=== PATIENT | male | born 1965 | race Hispanic/Latino ===

== ENCOUNTER 2017-08-27 16:33 | Emergency (ER) | payer OTHER ==
[~2017-08-27] VITALS: Ht 162.6 cm; Wt 81.6 kg
[2017-08-27] MEDS ORDERED: DIPHTH/TETANUS/ACEL. PERTUSSIS 0.5 ML SYR IM ONE (19:00)
[2017-08-27] MEDS ORDERED: CLINDAMYCIN 300MG 50 ML IV SCH (21:15)
[2017-08-27] MEDS ORDERED: IBUPROFEN 400 MG TAB PO ONE (21:30)
== END 2017-08-27 22:40 | disposition home or self-care (01) ==
LOC: FSED 16:33
DX: S01.112A Laceration without foreign body of left eyelid and periocular area, initial encounter (principal); W45.8XXA Other foreign body or object entering through skin, initial encounter; Y93.89 Activity, other specified; Y99.0 Civilian activity done for income or pay
CPT/HCPCS: 70481; 80048; 85025; 99284

== ENCOUNTER 2017-08-30 12:37 | Emergency (ER) | payer OTHER ==
[~2017-08-30] VITALS: Ht 152.4 cm; Wt 81.6 kg
--- OUTSIDE RECORDS SUMMARY | 2017-08-30 12:40 | XMS REPORT | Continuity of Care Document ---
Author Author [facility] Organization [facility] Address [address] [facility] [place] [address] Phone Unavailable Care Team Providers Care Shoe Clerk Name Role Phone NO, PCP PCP Unavailable Advance Directives Directive Response Recorded Date/Time Does the patient have an advance directive? No 08/27/17 5:42pm If yes, is advance directive on file with [facility]? No 08/27/17 5:42pm If not on file with [facility] will patient provide a copy? No 08/27/17 5:42pm Do you have a Directive to Physician? No 08/27/17 5:42pm Do you have a Medical Power of Conditioning Room Worker? No 08/27/17 5:42pm Do you have an out of hospital Do Not Resuscitate Order? No 08/27/17 5:42pm Do you have any special needs we should be aware of? No 08/27/17 5:42pm Do you have a support person here with you today? Yes 08/27/17 5:42pm Did patient receive Notice of Privacy Practices? Yes 08/27/17 5:42pm Did patient receive patient rights and responsibilities? Yes 08/27/17 5:42pm Problems No problem information available. Medications No medication information available. Social History No social history information available. Hospital Discharge Instructions No hospital discharge instruction information available. Plan of Care Discharge Date 08/27/17 10:40pm Disposition HOME, SELF-CARE Condition at Discharge Stable Instructions/Education Provided Laceration Forms Provided Work/School Excuse Prescriptions See Medication Section Additional Instructions/Education Keep wound clean and dry for 24 hours, then you may shower. Clean wound under the eye, gently, twice daily, and apply a generous amount of antibiotic ointment to the area twice daily. Take ALL oral antibiotics prescribed. Follow-up in 3-5 days, for suture removal. Hold your Metformin until 08/30/17, when you can resume it, due to the IV contrast that you received this evening. You may take Ibuprofen 200 mg - 3 tabs together every 6-8 hours, as needed, for pain. Functional Status No functional status information available. Allergies, Adverse Reactions, Alerts No known allergies. Immunizations No immunization information available. Vital Signs Acute Vital Signs Vital Response Date/Time Height 5 ft 4 in 08/27/2017 4:37pm Weight 180 lb 08/27/2017 4:37pm Body Mass Index 30.9 kg/m^2 08/27/2017 4:37pm Results No relevant diagnostic test, laboratory data and/or discharge summary information available. Procedures No procedure information available. Encounters Encounter Location Arrival/Admit Date Discharge/Depart Date Attending Provider Departed Emergency Room [facility] 08/27/17 4:33pm 10:40pm MARCELL GEE MD
== END 2017-08-30 13:30 | disposition home or self-care (01) ==
LOC: FSED 12:37
DX: Z48.02 Encounter for removal of sutures (principal); I10 Essential (primary) hypertension
CPT/HCPCS: 99281

== ENCOUNTER 2017-09-11 18:56 | Emergency (ER) | payer OTHER ==
--- OUTSIDE RECORDS SUMMARY | 2017-09-11 18:59 | XMS REPORT | Continuity of Care Document ---
Author Author [facility] Organization [facility] Address [address] [place] [address] Phone Unavailable Care Team Providers Care Angle Roll Operator Name Role Phone NO, PCP PCP Unavailable Advance Directives Directive Response Recorded Date/Time Does the patient have an advance directive? No 08/27/17 5:42pm If yes, is advance directive on file with [facility]? No 08/27/17 5:42pm If not on file with [facility] will patient provide a copy? No 08/27/17 5:42pm Do you have a Directive to Physician? No 08/30/17 1:13pm Do you have a Medical Power of Subway Operator? No 08/30/17 1:13pm Do you have an out of hospital Do Not Resuscitate Order? No 08/30/17 1:13pm Do you have any special needs we should be aware of? No 08/30/17 1:13pm Do you have a support person here with you today? No 08/30/17 1:13pm Did patient receive Notice of Privacy Practices? Yes 08/30/17 1:13pm Did patient receive patient rights and responsibilities? Yes 08/30/17 1:13pm Problems No problem information available. Medications No medication information available. Social History Smoking Status Start Date Stop Date Never Smoker Hospital Discharge Instructions No hospital discharge instruction information available. Plan of Care Discharge Date 08/30/17 1:30pm Disposition HOME, SELF-CARE Condition at Discharge Improved Prescriptions See Medication Section Additional Instructions/Education Pt instructed to keep area clean and dry and to contiue antibotic ointment to the area twice daily x 5 more day. Functional Status No functional status information available. Allergies, Adverse Reactions, Alerts No known allergies. Immunizations No immunization information available. Vital Signs Acute Vital Signs Vital Response Date/Time Height 5 ft 0 in 08/30/2017 12:48pm Weight 180 lb 08/30/2017 12:48pm Body Mass Index 35.2 kg/m^2 08/30/2017 12:48pm Results No relevant diagnostic test, laboratory data and/or discharge summary information available. Procedures No procedure information available. Encounters Encounter Location Arrival/Admit Date Discharge/Depart Date Attending Provider Departed Emergency Room [facility] 08/30/17 12:37pm 08/30 1:30pm MARCELL GEE MD Departed Emergency Room [facility] 08/27/17 4:33pm 10:40pm MARCELL GEE MD
== END 2017-09-11 19:00 | disposition left against medical advice (07) ==
LOC: FSED 18:56
DX: R21 Rash and other nonspecific skin eruption (principal)